=== PATIENT | male | born 1980 | race Asian ===

== ENCOUNTER 2021-04-30 13:55 | Emergency (ER) | payer OTHER, SELFPAY ==
[2021-04-30 13:57] VITALS: BP 151/103; PULSE 92; RESP 20; TEMP 36.9; O2SAT 100
[2021-04-30] MEDS: SODIUM CHLORIDE 0.9% IV 1,000 ML 150 ML IV CONT (14:55)
[2021-04-30] MEDS: GLUCAGON FOR INJ 1 MG VIAL IV PUSH (15:50)
[2021-04-30] MEDS: NITROGLYCERIN SL 0.4 MG TABLET SUBLINGUAL (15:50)
--- NOTE | 2021-04-30 16:28 | ED.GENADULT ---
HPI - General Adult General Chief complaint: Unspecified Stated complaint: food bolus? Time Seen by Provider: 04/30/21 14:30 Source: patient Mode of arrival: ambulatory Limitations: no limitations History of Present Illness HPI narrative: 40-year-old male He is been in town staying with Dr. Jackson Last night for dinner they had some pasta and then later on pizza Subsequently he took some [id number] Motrin and thinks the second 1 got stuck in his throat He tried to have small bites of food or sips of liquid but these always resulted in chest tightness and/or regurgitation and by early afternoon he was even spitting out his saliva He has had a couple of somewhat similar episodes in the past but they were less severe and went away by themselves And he is a vegetarian so there should not be any big hunks of meat down there, if anything may be some of the carrots from last night but he regarded them as generally pretty mushy Related Data Allergies Allergy/AdvReac Type Severity Reaction Status Date / Time No Known Allergies Allergy Verified 04/30/21 14:57 Review of Systems ENT: Denies sore throat, Denies throat swelling and Denies tongue swelling Comments: Difficulty swallowing Respiratory: Respiratory: Denies cough and Denies dyspnea Gastrointestinal: Gastrointestinal: Denies abdominal pain and Denies bloating Exam Const: General: cooperative, healthy appearing, comfortable, no acute distress and alert HENMT: Mouth: Yes Normal oral and palatal mucosa present, No audible dysphonia and Yes drooling Throat: posterior oropharynx normal Neck: Neck: normal visual inspection and no lymphadenopathy Resp: Effort & Inspection: normal respiratory effort Auscultation: clear to auscultation bilaterally Cardio: Rate: regular rate Rhythm: regular rhythm Neuro: General: patient oriented x3 Speech: normal speech Course Course Emergency Course: After nitro and glucagon he was able to swallow a couple boluses of soda and subsequently eat a blueberry muffin without problems Vital Signs Vital signs: Vital Signs Temperature 36.9 C 04/30/21 13:57 Pulse Rate 92 04/30/21 13:57 Respiratory Rate 20 04/30/21 13:57 Blood Pressure 151/103 H 04/30/21 13:57 Pulse Oximetry 100 04/30/21 13:57 Temperature 36.9 C 04/30/21 13:57 Pulse Rate 92 04/30/21 13:57 Respiratory Rate 20 04/30/21 13:57 Blood Pressure 151/103 H 04/30/21 13:57 Pulse Oximetry 100 04/30/21 13:57 Medical Decision Making Vital Signs Vital Signs: Vital Signs Temperature 36.9 C 04/30/21 13:57 Pulse Rate 92 04/30/21 13:57 Respiratory Rate 20 04/30/21 13:57 Blood Pressure 151/103 H 04/30/21 13:57 Pulse Oximetry 100 04/30/21 13:57 Temperature 36.9 C 04/30/21 13:57 Pulse Rate 92 04/30/21 13:57 Respiratory Rate 20 04/30/21 13:57 Blood Pressure 151/103 H 04/30/21 13:57 Pulse Oximetry 100 04/30/21 13:57 Discharge Plan Discharge Clinical Impression: Esophageal foreign body Patient Disposition: Home, Self-Care Condition: Improved Instructions: Esophageal Foreign Body (ED) Additional Instructions: After you return home to [place] you probably should see a litigation partner and possibly have an upper endoscopy to evaluate for strictures or or diverticula in the esophagus Follow-up/Referrals: Manuel Jackson MD [Primary Care Provider] -
== END 2021-04-30 17:54 | disposition home or self-care (01) ==
PROVIDERS: Emergency Provider Emergency Medicine; PCP Internal Medicine
DX: T18.128A Food in esophagus causing other injury, initial encounter (principal)
CPT/HCPCS: 96361; 96374; 99284; A9270; J1610; J7030